=== PATIENT | female | born 1965 | race Caucasian/White ===

== ENCOUNTER 2020-07-27 06:25 | Day surgery (SDC) | payer OTHER ==
[~2020-07-27] VITALS: Ht 157.5 cm; Wt 83.3 kg
[~2020-07-27 06:25] MED LIST: ACET325 PO; ALBU90OI INH; DOCU100 PO; FISH OIL PO; FLUT.05NI; HYDR1TAB94 PO; IRBE150 PO; LANS30EC PO; LOVA40 PO; METF500 PO; Mupirocin22 GM; SENN187 PO; VITAMIN B125000 MC1 PO; Vitamin B Comple1 EA PO
--- NOTE | 2020-07-27 07:49 | NUR ---
07/27/20 0749 Ena Bob 30CC 0.5% MARCAINE WITH EPI GIVEN IN THE OR.
== END 2020-07-27 09:00 | disposition home or self-care (01) ==
LOC: ORSCSDS 06:25
PROVIDERS: Podiatrist Foot & Ankle Surgery
PROC: 0QPH04Z Removal of Internal Fixation Device from Left Tibia, Open Approach (ICD-10-PCS; principal; 2020-07-27 07:30)
DX: T84.84XA Pain due to internal orthopedic prosthetic devices, implants and grafts, initial encounter (principal); Z96.662 Presence of left artificial ankle joint; S82.55XD Nondisplaced fracture of medial malleolus of left tibia, subsequent encounter for closed fracture with routine healing; I10 Essential (primary) hypertension; E11.9 Type 2 diabetes mellitus without complications; J45.909 Unspecified asthma, uncomplicated; Z79.899 Other long term (current) drug therapy; E66.9 Obesity, unspecified; Z68.33 Body mass index [BMI] 33.0-33.9, adult
CPT/HCPCS: 82947; J0171; J0690; J1100; J2250; J2405; J2704; J3010; J7120

== ENCOUNTER 2024-11-04 06:37 | Observation (INO) | payer OTHER ==
[2024-11-04] VITALS (18 sets, daily range): BP systolic 108–161; BP diastolic 71–95
[~2024-11-04] VITALS: Ht 157.5 cm; Wt 77.2 kg
[~2024-11-04 06:37] MED LIST changes: +FARXIGA5 MG PO; +PANTOPRAZOLE SO20 M3 PO
[2024-11-04] MEDS ORDERED: FentaNYL Citrate 50 MCG/ML 2 ML Injection ONE (06:54)
[2024-11-04] MEDS ORDERED: Midazolam HCl 1MG / ML 2ML Vial ONE (06:54)
[2024-11-04] MEDS ORDERED: Lactated Ringer's 1,000 ML IV SCH (06:55)
[2024-11-04] MEDS ORDERED: Ropivacaine 0.5% HCl/Pf 123.125 MG,EPINEPHrine HCL 0.25 MG,Ketorolac Tromethamine 15 MG... INFIL SCH (06:55)
[2024-11-04] MEDS ORDERED: CeFAZolin Sodium 2,000 MG in NS 100 ML IV SCH (06:55)
[2024-11-04] MEDS ORDERED: Metoclopramide HCl 5MG / ML 2ML Vial ONE (07:03)
[2024-11-04] MEDS ORDERED: Ondansetron HCl 2 MG / ML 2ML Vial ONE ×3 (07:03→10:48)
[2024-11-04] MEDS ORDERED: propofoL 20 ML IV ONE (07:03)
[2024-11-04] MEDS ORDERED: CeFAZolin Sodium 2,000 MG VIAL ONE (07:11)
--- NOTE | 2024-11-04 07:34 | NUR ---
Ambulatory in Day Surgery WITH STEADY GAIT. History, Chart, Medications and Allergies reviewed before start of procedure. Pre-Op teaching done. Pt verbalizes understanding. Patient States Post-Procedure ride home has been arranged WITH SPOUSE. BILAT HEARING AIDS REMOVED AND GIVEN TO SPOUSE. GLASSES REMOVED AND TAKEN TO PACU WITH PT LABEL ON THEM. ALL OTHER BELONGINGS PLACED UNDER GURN. PT'S SPOUSE AT BEDSIDE DURING PRE OP.
--- NOTE | 2024-11-04 07:36 | NUR ---
NERVE BLOCK DONE AT BEDSIDE WITH ANESTHESIA PROVIDER. TIME OUT DONE TO CONFIRM SIDE WIT PT AND ANESTHESIA PROVIDER. PT PLACED IN RIGHT LATERAL POSITION WITH PILLOW BEWTEEN LEGS. NASAL CANNULA PLACED WITH 2L OXYGEN PER ANESTHESIA. SEE ANESTHESIA NOTES.
[2024-11-04] MEDS ORDERED: HYDROmorphone HCl/Pf 1MG SYR ONE ×3 (07:54→10:11)
[2024-11-04] MEDS ORDERED: Dexamethasone Sodium Phosphate 4 MG/ML 5ML VIAL ONE (09:31)
[2024-11-04] MEDS ORDERED: HYDROcodone 5-APAP 325 TAB PO PRN (09:40)
[2024-11-04] MEDS ORDERED: Ketorolac Tromethamine 30mg Vial ONE (09:47)
--- NOTE | 2024-11-04 10:39 | NUR ---
POST OP ARRIVAL TO SURGICAL UNIT S/P ANKLE REVISION, ARRIVES IN GOURNEY & TRANSFER TO HOSPITAL BED VIA SLIDER SHEET. PLEASANT & ORIENTED. L ANKLE ELVATED ON 2 PILLOWS & ICE BEHIND KNEE. BRISK CAP REFILL. TOES PWD & CAN WIGGLE TOES BUT DECREASED SENSATION. BULKY PERCY & SPLINT IN PLACE. LUNGS CLEAR; HRR. 3/10 PAIN. C/O NAUSEA. EMESIS BAG & COOL WASHCLOTH GIVEN. WILL MEDICATE w/ ZOFRAN WHEN AVAILABLE.
[2024-11-04] MEDS ORDERED: FLU VACC TS2024-25(6MOS UP)/PF 45 MCG/0.5 ML SYRINGE IM ONE (10:45)
[2024-11-04] MEDS ORDERED: Metoclopramide HCl 5MG / ML 2ML Vial IV PRN (13:55)
[2024-11-04] MEDS ORDERED: Ondansetron HCl 2 MG / ML 2ML Vial IV PRN (14:00)
[2024-11-04 15:16] LABS: BASOPHILS ABSOLUTE AUTO 0.02 K/mm3 (0.00-0.23); BASOPHILS PERCENT AUTO 0 % (0-2); EOSINOPHILS ABSOLUTE AUTO 0.01 K/mm3 (0.00-0.68); EOSINOPHILS PERCENT AUTO 0 % (0-6); Hematocrit 42.4 % (33.0-51.0); Hemoglobin 14.1 g/dL (11.5-16.0); IMMATURE GRAN ABSOLUTE AUTO 0.03 K/mm3 (0.00-0.10); IMMATURE GRAN PERCENT AUTO 0 % (0-1); LYMPHOCYTES ABSOLUTE AUTO 1.21 K/mm3 (0.84-5.20); LYMPHOCYTES PERCENT AUTO 13 % (21-46); MONOCYTES ABSOLUTE AUTO 0.14 K/mm3 (0.16-1.47); MONOCYTES PERCENT AUTO 2 % (4-13); Mean Corpuscular HGB 28.6 pg (26.0-34.0); Mean Corpuscular HGB Conc 33.3 g/dL (31.5-36.5); Mean Corpuscular Volume 86 fL (80-100); Mean Platelet Volume 9.5 fL (9.1-12.4); NEUTROPHILS PERCENT AUTO 85 % (41-73); Platelet Count 184 K/mm3 (150-400); RDW Coefficient Variation 14.3 % (11.7-14.2); RDW Standard Deviation 45.1 fL (35.1-46.3); Red Blood Cell Count 4.93 M/mm3 (3.80-5.20); White Blood Cell Count 9.21 K/mm3 (4.00-11.30)
[2024-11-04 15:40] LABS: Albumin, Blood 3.7 g/dL (3.4-5.0); Albumin/Globulin Ratio 1.2 (0.8-1.8); Bilirubin, Total 0.6 mg/dL (0.1-1.0); Bun/Creatinine Ratio 31.6 (12.0-20.0); Calcium, Blood 8.7 mg/dL (8.5-10.1); Creatinine, Blood 0.57 mg/dL (0.40-1.00); Potassium, Blood 4.2 mmol/L (3.5-5.5); Total Protein, Blood 6.7 g/dL (6.4-8.2)
[2024-11-04] MEDS ORDERED: METO5A PO (15:50)
[2024-11-04] MEDS ORDERED: ONDA4ODT MM (15:51)
--- NOTE | 2024-11-04 16:13 | NUR ---
DISCHARGE NAUSEA HAS RESOLVED; NEVER HAD EMESIS. ABLE TO TAKE IN SNACKS & DRINKS. DECLINED THERAPY & FEELS COMFORTABLE w/ TRANSFERS. OBTAINED FWW & Rx. VOIDED. STABLE TRANSFERS TO [facility] & TO . ESCORTED OUT VIA WC.
[2024-11-04] MEDS ORDERED: Insulin Human Lispro 100 Units/ML 3ML Syringe SC SCH (16:30)
[2024-11-05] MEDS ORDERED: Pantoprazole Sodium 40 MG Tab PO SCH (06:00)
[2024-11-05] MEDS ORDERED: Empagliflozin 10 MG TAB PO SCH (09:00)
== END 2024-11-04 16:07 | disposition home or self-care (01) ==
LOC: MEDS 06:37 → SURS 06:37 → PRE IP 06:37 → SURS 07:31 → MEDS 10:26 → SURS 10:26
PROVIDERS: Family Medicine; ADMIT Podiatrist Foot & Ankle Surgery
PROC: 01NG0ZZ Release Tibial Nerve, Open Approach (ICD-10-PCS; 2024-11-04)
PROC: 0SWG0JZ Revision of Synthetic Substitute in Left Ankle Joint, Open Approach (ICD-10-PCS; principal; 2024-11-04 07:30)
DX: G57.52 Tarsal tunnel syndrome, left lower limb (principal); M19.172 Post-traumatic osteoarthritis, left ankle and foot; E11.9 Type 2 diabetes mellitus without complications; I10 Essential (primary) hypertension; K21.9 Gastro-esophageal reflux disease without esophagitis; E78.5 Hyperlipidemia, unspecified; Z79.84 Long term (current) use of oral hypoglycemic drugs; Z79.899 Other long term (current) drug therapy; Z88.5 Allergy status to narcotic agent; Z88.2 Allergy status to sulfonamides; Z91.040 Latex allergy status
CPT/HCPCS: 36415; 73610; 80053; 82947; 85025; 96374; 96375; A9270; C1776; G0378; J0171; J0690; J0735; J1100; J1171; J1885; J2250; J2405; J2704; J2765; J2795; J3010; J7120